=== PATIENT | female | born 1955 | race Caucasian/White ===

== ENCOUNTER 2021-08-29 08:09 | Outpatient (CLI) | payer MEDICARE | END 2021-08-29 08:10 | disposition home or self-care (01) | LOC: CSHLAB 08:09 | PROVIDERS: ATTEND Obstetrics & Gynecology | DX: Z01.818 Encounter for other preprocedural examination (principal); Z20.822 Contact with and (suspected) exposure to COVID-19; N84.0 Polyp of corpus uteri | CPT/HCPCS: 80048; 85027; 86850; 86900; 86901; 93005; 93010; U0003; U0005 ==

== ENCOUNTER 2021-12-17 08:01 | Emergency (ER) | payer MEDICARE | END 2021-12-17 08:02 | disposition home or self-care (01) | LOC: CSHERS 08:01 | DX: M62.81 Muscle weakness (generalized) (principal); I10 Essential (primary) hypertension; E11.9 Type 2 diabetes mellitus without complications; I48.91 Unspecified atrial fibrillation | CPT/HCPCS: 93005; 93010 ==

== ENCOUNTER 2021-12-18 01:07 | Observation (INO) | payer MEDICARE ==
[2021-12-18] MEDS ORDERED: Dextrose 50% Abboject 50 ML SYRINGE SLOW IVP PRN (01:55)
[2021-12-18] MEDS ORDERED: Senokot S 8.6-50 MG TAB PO PRN (01:55)
[2021-12-18] MEDS ORDERED: Ondansetron PF 4 MG/2 ML Vial IVP PRN (01:55)
[2021-12-18] MEDS ORDERED: Calcium Carbonate 500 MG ChewTAB PO PRN (01:55)
[2021-12-18] MEDS ORDERED: Acetaminophen 325 MG TAB PO PRN (01:55)
[2021-12-18] MEDS ORDERED: Dextrose 5% in Water 1,000 ML IV PRN (01:55)
[2021-12-18] MEDS ORDERED: HYDROcodone/Acetaminophen 5/325 mg Tablet PO PRN (01:55)
[2021-12-18 02:06] VITALS: BMI 35.1
[2021-12-18] MEDS ORDERED: Levothyroxine Sodium 50 MCG TAB PO SCH (06:00)
[2021-12-18 07:48] LABS: #Basophils 0.1 10x3/uL (0.0-0.2); #Eosinphils 0.1 10x3/uL (0.0-0.5); #Monocytes 0.6 10x3/uL (0.0-1.1); #Neutrophils 5.8 10x3/uL (1.5-8.4); %Basophils 0.7 % (0.0-2.0); %Eosinophils 0.7 % (0.0-6.0); %Lymphocytes 27.2 % (18.0-47.0); %Monocytes 6.9 % (0.0-10.0); %Neutrophils 64.2 % (40.0-75.0); Hemoglobin 9.6 g/dL (12.0-15.5); Mean Corpuscular HGB CONC 33.7 g/dL (32.0-36.0); Mean Corpuscular Volume 83.1 fl (81.6-98.3); Mean Platelet Volume 9.4 fl (7.4-10.4); Platelet Count 198 10x3/uL (150-450); RBC Distribution Width 15.6 % (11.5-14.5); Red Blood Cell (RBC) Count 3.43 10x6/uL (3.90-5.03)
[2021-12-18 07:58] LABS: Anion Gap 11 mmol/L (10-20); BUN (Urea Nitrogen) 35 mg/dL (9.8-20.1); Calc. Creatinine Clearance 59 mL/min (70-130); Calcium 8.8 mg/dL (7.8-10.44); Carbon Dioxide 21 mmol/L (23-31); Chloride 111 mmol/L (98-107); Estimated GFR 48; Glucose 101 mg/dL (80-115); Potassium 5.2 mmol/L (3.5-5.1); Sodium 138 mmol/L (136-145)
[2021-12-18] MEDS ORDERED: Calcium Carbonate 600 MG TAB PO SCH (09:00)
[2021-12-18] MEDS ORDERED: Cholecalciferol 1,000 UNITS (25 MCG) TAB PO SCH (09:00)
[2021-12-18] MEDS ORDERED: Isosorbide Mononitrate 20 MG TAB PO SCH (09:00)
[2021-12-18] MEDS ORDERED: Amlodipine 10 MG TAB PO SCH (09:00)
[2021-12-18] MEDS ORDERED: Alogliptin 25 MG TAB PO SCH (09:00)
[2021-12-18] MEDS ORDERED: Empagliflozin 25 MG TAB PO SCH (09:00)
[2021-12-18] MEDS: Enoxaparin Sodium 80 MG/0.8 ML SYRINGE SC SCH ×2 (09:13→21:55)
[2021-12-18 13:53] LABS: #Basophils 0.1 10x3/uL (0.0-0.2); #Eosinphils 0.1 10x3/uL (0.0-0.5); #Monocytes 0.7 10x3/uL (0.0-1.1); #Neutrophils 5.8 10x3/uL (1.5-8.4); %Eosinophils 1.2 % (0.0-6.0); %Lymphocytes 28.4 % (18.0-47.0); %Monocytes 7.2 % (0.0-10.0); %Neutrophils 61.9 % (40.0-75.0); Hemoglobin 8.9 g/dL (12.0-15.5); Mean Corpuscular HGB CONC 33.1 g/dL (32.0-36.0); Mean Corpuscular Hemoglobin 27.9 pg (27.0-33.0); Mean Corpuscular Volume 84.3 fl (81.6-98.3); Mean Platelet Volume 9.6 fl (7.4-10.4); Platelet Count 221 10x3/uL (150-450); RBC Distribution Width 15.3 % (11.5-14.5); Red Blood Cell (RBC) Count 3.19 10x6/uL (3.90-5.03); White Blood Cell (WBC) Count 9.4 10x3/uL (3.5-10.5)
[2021-12-18] MEDS ORDERED: HumaLOG 300 UNITS/3 ML VIAL SC PRN (15:25)
[2021-12-18] MEDS ORDERED: Atorvastatin Calcium 40 MG TAB PO SCH (21:00)
[2021-12-18 21:41] LABS: Hemoglobin 8.5 g/dL (12.0-15.5)
[2021-12-19 01:11] VITALS: BP 110/70; TEMP 98.6
== END 2021-12-19 00:50 | disposition short-term general hospital (02) ==
LOC: CSHTELE 01:07
PROVIDERS: ADMIT Internal Medicine; ATTEND Internal Medicine
DX: N95.0 Postmenopausal bleeding (principal); D62 Acute posthemorrhagic anemia; N17.9 Acute kidney failure, unspecified; I10 Essential (primary) hypertension; E78.5 Hyperlipidemia, unspecified; I25.10 Atherosclerotic heart disease of native coronary artery without angina pectoris; I48.19 Other persistent atrial fibrillation; E11.65 Type 2 diabetes mellitus with hyperglycemia; G47.33 Obstructive sleep apnea (adult) (pediatric); N85.9 Noninflammatory disorder of uterus, unspecified; E66.01 Morbid (severe) obesity due to excess calories; Z68.35 Body mass index [BMI] 35.0-35.9, adult; Z86.73 Personal history of transient ischemic attack (TIA), and cerebral infarction without residual deficits; Z79.01 Long term (current) use of anticoagulants; Z79.84 Long term (current) use of oral hypoglycemic drugs; Z79.890 Hormone replacement therapy; Z79.899 Other long term (current) drug therapy; Z95.818 Presence of other cardiac implants and grafts
CPT/HCPCS: 36430; 80048; 82962; 85014; 85018; 85025 ×2; 86850; 86900; 86901; 86920; P9016; 36415; 36416

== ENCOUNTER 2025-01-03 10:54 | Outpatient (CLI) | payer MEDICARE | END 2025-01-03 10:55 | disposition home or self-care (01) | LOC: CSHMAMMO 10:54 | PROVIDERS: ATTEND Family Medicine | DX: Z12.31 Encounter for screening mammogram for malignant neoplasm of breast (principal) | CPT/HCPCS: 77063; 77067 ==